=== PATIENT | female | born 1935 | race Caucasian/White ===

== ENCOUNTER 2016-09-20 07:36 | Inpatient (IN) | payer MEDICARE, MEDICAID ==
[~2016-09-20] VITALS: Ht 165.1 cm; Wt 39.4 kg
--- NOTE | ~2016-09-20 | DS ---
PATIENT'S NAME: NICHO DIAZ [facility] AGE: 81 Y [address] ROOM: [id number] [place], [place] [address] LOCATION: GPCU ADMIT DATE: 09/20/2016 Discharge Summary DISCHARGE DATE: 09/24/2016 FAMILY PHYSICIAN: Elio Bryson MD ATTENDING PHYSICIAN: Cristobal Anderson DISCHARGE DIAGNOSES: Pneumonia, endovascular leak, and status post fall. OPERATIONS AND PROCEDURES: None. HISTORY OF PRESENT ILLNESS: Please refer to H and P dictated by Dr. Brice. HOSPITAL COURSE: The patient was admitted to the Hospitalist Service after having a ground level fall at home. X-rays of her pelvis and left hip were negative for fractures. The patient was also noted to be in severe sepsis, secondary to bilateral lower lobe pneumonia. She received IV fluids in the emergency room and a dose of Zosyn. Blood cultures were taken. Her initial lactate was 2.4. Upon being admitted to the floor, her Zosyn was changed to Levaquin 750 q.48 dosing, the first dose of which she received on the . She improved clinically on Levaquin and her oxygen requirement came down from 6 L to 3 L at discharge. She chronically takes 4 L at home daily 04/09. Due to the patient's fall, she had continued difficulty with mobility, PT and OT were considered during her stay. At the time of discharge, she was able to walk on her own with a walker. Her pain was adequately controlled with Tylenol with Codeine and [place]. The [place] was discontinued for discharge and she was sent home on her home dosing of Tylenol with Codeine. The patient also noted to have endovascular leak on CT of her abdomen. The patient had known AAA with endovascular repair. Given her significant peripheral arterial disease, endovascular repair is not possible, and the only other option is open repair, which Vascular discussed with the patient, and she is not currently a candidate at this time; however, if she were to undergo open repair, she would need to be referred to [facility]. DISCHARGE INSTRUCTIONS: Diet as tolerated. Activity as tolerated. The patient is to take Levaquin for 3 more doses and her last dose she received in the hospital was on the 24 of September; so, she take another dose on the , , and to complete a 10 day course of Levaquin. DISCHARGE MEDICATIONS: 1. Flonase 1 spray in each nostril everyday. 2. Guaifenesin 1200 mg daily. 3. Plavix 75 mg daily. 4. Omeprazole 20 mg twice daily. 5. Prednisone 10 mg daily. 6. Trazodone 50 mg every night at bedtime. PATIENT'S NAME: NICHO DIAZ [facility] AGE: 81 Y [address] ROOM: [place] [address] [facility] ADMIT DATE: 09/20/2016 Discharge Summary DISCHARGE DATE: 09/24/2016 FAMILY PHYSICIAN: Elio Bryson MD ATTENDING PHYSICIAN: Cristobal Anderson 7. Advair 1 puff inhaled twice daily. 8. Spiriva 1 puff inhaled everyday. 9. Tylenol with Codeine 1 tab p.o. every 6 hours p.r.n. 10. Ipratropium albuterol 1 dose inhaled 4 times daily as needed. 11. Albuterol 1 puff inhaled every 4 hours p.r.n. 12. The patient was also given script for TLSO for her chronic back pain and a walker for her chronic gait instability. FOLLOW UP: The patient is to followup with her primary care doctor Dr. Bryson in 2 to 4 days. CONDITION: Fair. Total time spent was 45 minutes. BEBETO TORRES MD FOR MD YENI WASHINGTON/mau /[id number] d: 09/25/16 0215 t: 10/06/16 1140, DISCHARGE SUMMARY
--- NOTE | ~2016-09-20 | HP ---
PATIENT'S NAME: NICHO DIAZ [facility] AGE: 81 Y [address] ROOM: [place] [address] LOCATION: GPCU ADMIT DATE: 09/20/2016 History & Physical DISCHARGE DATE: FAMILY PHYSICIAN: JOYCE GARCIA MD ATTENDING PHYSICIAN: BERNY GA DATE OF SERVICE: CHIEF COMPLAINT: Sepsis secondary to bilateral lower lobe pneumonia, fall, unable to walk. HISTORY OF PRESENT ILLNESS: This is an 81-year-old female with a history of COPD on 4 L of oxygen at baseline, active smoker, history of AAA aneurysm status post repair, who presents from home after sustaining a fall yesterday. The patient presents to the emergency room for evaluation of her injuries from the fall, especially noting the fact that she was not able to walk since her fall. Initial evaluation with CT scan of her abdomen and pelvis did not show any fractures. The patient is still unable to bear weight and ambulate currently. The patient was also reporting increased cough and worsening sputum production over the past few days as well. In the ED, she had a temperature of 100.3. Denies any subjective fever or chills, however. The patient did have recurrent admissions in the past with pneumonia. The patient currently during my evaluation is resting comfortably in bed. She was not reporting any worsening of shortness of breath. Denies any chest pain, dizziness, lightheadedness, as well, although her appetite has been poor. Overall, she is in good spirits. Denies any abdominal pain, nausea, vomiting, diarrhea, constipation. PAST MEDICAL HISTORY: COPD, peptic ulcer disease, osteoporosis, scoliosis, aortic aneurysm status post endovascular repair. SOCIAL HISTORY: The patient is currently an active smoker and has had a long history of smoking. Denies any alcohol or drug use. FAMILY HISTORY: The patient has history of hypertension and heart disease in her parents. REVIEW OF SYSTEMS: All systems have been reviewed and were all negative except as described in the HPI. PHYSICAL EXAMINATION: PATIENT'S NAME: NICHO DIAZ [facility] AGE: 81 Y [address] ROOM: [place] [address] LOCATION: GPCU ADMIT DATE: 09/20/2016 History & Physical DISCHARGE DATE: FAMILY PHYSICIAN: JOYCE GARCIA MD ATTENDING PHYSICIAN: BERNY GA VITAL SIGNS: Blood pressure 106/57, temperature 100.2, pulse 119, respiratory rate 22, saturating 90% on 6 L of nasal cannula. GENERAL: The patient is awake, alert, and oriented x3, in no acute distress. HEENT: Dry mucosal membranes. No scleral icterus. Conjunctival pallor noted. SKIN: Age related ecchymosis noted on upper and lower extremities. CHEST: Diminished breath sounds with mild wheezing diffusely but no rhonchi or rales noted. HEART: S1, S2. Tachycardic but regular rate and rhythm. ABDOMEN: Soft, nontender, nondistended with positive bowel sounds. MUSCULOSKELETAL: Left hip pain with active and passive range of motion. NEUROLOGIC: Grossly nonfocal. EXTREMITIES: Without edema. LABORATORY DATA: Lactate 2.4, white count 76[address]. ASSESSMENT AND PLAN: 1. Severe sepsis secondary to bilateral lower lobe pneumonia. The patient received an equivalent of 30 mL per kg and IV fluid boluses. I will continue maintenance fluid on top of this. Blood cultures x2 have been ordered. Initial lactate 2.4, we will repeat lactic acid level in 3 hours and reassess. She had gotten a dose of Zosyn and I will change this to Levaquin and continue to evaluate clinically. 2. Fall with left hip injury. The patient is not able to bear weight on her leg. No signs of fracture on CAT scan done. We will have PT/OT evaluate patient and would likely need evaluation for placement as well since she came from home and it does not look like she would be able to go back home currently. 3. Status post abdominal aortic aneurysm repair. CT scan showing signs of leak. The patient is being seen by Vascular Surgery and Dr. Wolfe. 4. Acute on chronic respiratory failure with hypoxia at baseline of 4 L of oxygen at home. Now up to 6 L, saturating around 90%. We will treat pneumonia and continue to evaluate. 5. Severe protein calorie malnutrition. We will give some nutritional supplementation. 6. Chronic obstructive pulmonary disease, management with pneumonia as above. 7. Tobacco dependence. The patient is still an active smoker, and does not have an interest in thinking about quitting at this point. 8. Deep venous thrombosis prophylaxis. We will use subcutaneous heparin. PATIENT'S NAME: NICHO DIAZ [facility] AGE: 81 Y [address] ROOM: [id number] [place] [id number] LOCATION: [facility] ADMIT DATE: 09/20/2016 History & Physical DISCHARGE DATE: FAMILY PHYSICIAN: JOYCE GARCIA MD ATTENDING PHYSICIAN: BERNY GA MD BG/modl /[id number] D: [id number] T: [id number] HISTORY & PHYSICAL
--- NOTE | ~2016-09-20 | CON ---
PATIENT'S NAME: NICHO DIAZ [facility] AGE: 81 Y [address] ROOM: [address] [address] LOCATION: GPCU ADMIT DATE: 09/20/2016 Consultation DISCHARGE DATE: FAMILY PHYSICIAN: JOYCE GARCIA MD ATTENDING PHYSICIAN: BERNY GA DATE OF CONSULTATION: 09/20/2016 REASON FOR CONSULTATION: Abdominal aortic aneurysm, post EVAR, now with endoleak. HISTORY OF PRESENTING ILLNESS: This is an 81-year-old female, currently in the emergency room at [facility]. The patient reports that she fell yesterday at home after tripping on her way out of the bathroom. She now presents to the emergency room with pain in her lower abdomen, back, left buttock, and left groin. She reports that she is unable to walk due to pain. X-ray complete with no acute bone fracture identified of the left hip or pelvis. There are vascular calcifications on x-ray. She also complains of cough. The patient with significant history of COPD, chronic bronchitis, and emphysema. The patient is known to Vascular Surgery. She underwent endovascular abdominal aortic aneurysm repair in 2003 with stent graft in [place]. We last saw the patient in November 2015 in the clinic and at that time on CTA, there was no evidence of endoleak. She was also still smoking and expressed no interest in smoking cessation. She continues to smoke 6-7 cigarettes a day. The patient with a [place] Excluder graft. CT with contrast today reveals a new endoleak from previous scan to base of aortic aneurysm with increase in AAA size from previous 5.5 cm to now 6 cm. The patient also reports symptoms consistent with claudication with difficulty ambulating in a certain distance. She denies any shortness of breath or chest pain. She denies any dizziness or palpitations. Denies nausea, vomiting, or diarrhea. PAST MEDICAL HISTORY: 1. AAA, postop repair. 2. Osteoarthritis. 3. COPD. 4. Anxiety. 5. Tobacco abuse. 6. Peripheral vascular disease. PAST SURGICAL HISTORY: 1. Lumbar diskectomy. 2. Total hysterectomy. 3. Endovascular abdominal aortic aneurysm repair. 4. Cholecystectomy. PATIENT'S NAME: NICHO DIAZ [facility] AGE: 81 Y [address] ROOM: [place] [address] LOCATION: [facility] ADMIT DATE: 09/20/2016 Consultation DISCHARGE DATE: FAMILY PHYSICIAN: JOYCE GARCIA MD ATTENDING PHYSICIAN: BERNY GA 5. Tonsillectomy. FAMILY HISTORY: The patient reports that she was adopted and her family history is unknown. SOCIAL HISTORY: The patient is a 60-year smoker, continues to smoke 6-7 cigarettes a day. She denies any alcohol or illicit drug use. CURRENT MEDICATIONS: See medication reconciliation. ALLERGIES: NO KNOWN DRUG ALLERGIES. REVIEW OF SYSTEMS: All systems have been reviewed and negative aside from pertinent positives addressed in history of presenting illness. PHYSICAL EXAMINATION: VITAL SIGNS: Temperature is 100.2, heart rate 119, respiratory rate 22, blood pressure 106/57, and oxygen 90%. GENERAL: The patient is alert and oriented x3. She is in no distress while lying in bed. Gait is unobserved. The patient reports significant pain with standing. SKIN: Warm, pink, and dry. Areas of scattered ecchymosis to bilateral arms. No nonhealing wounds to the extremities. HEENT: Head: Normocephalic and atraumatic. Ears without drainage. Eyes: Sclerae white. Conjunctivae pink. Nose: Without drainage. Throat: Oral mucosa pink and moist. No exudate or erythema. NECK: Without adenopathy. No evidence of JVD. No carotid bruit. Trachea midline. RESPIRATORY: Even and unlabored. Diminished lung sounds. Crackles in the bases. CARDIOVASCULAR: Regular rate and rhythm. Tachycardic, no murmur or extra sounds. GASTROINTESTINAL: Bowel sounds active x4. Soft, no pulsatile mass. Nontender, no organomegaly. EXTREMITIES: Diminished femoral pulse on the right. Unable to palpate a femoral pulse on the left. DP and PT are nonpalpable. No edema, no cyanosis. NEUROLOGICAL: No focal deficits. DIAGNOSTICS: Hematology: White blood cell count 8.3, hemoglobin 9.7, hematocrit 30.1, platelets 205. Chemistry: Sodium 136, potassium 3.5, chloride 101, CO2 of PATIENT'S NAME: NICHO DIAZ [facility] AGE: 81 Y [address] ROOM: [address] [place] [id number] LOCATION: GPCU ADMIT DATE: 09/20/2016 Consultation DISCHARGE DATE: FAMILY PHYSICIAN: JOYCE GARCIA MD ATTENDING PHYSICIAN: BERNY GA 26, BUN 19, creatinine 0.8, glucose 145, lactate 2.4. Chest x-ray, impression: Emphysematous changes in the lung with scattered fibrotic strands present. Lung consolidation at the medial lower right hemithorax, at the left infrahilar area, and left base. Procalcitonin 0.41. IMPRESSION AND PLAN: Abdominal aortic aneurysm, postop repair with stent graft. Now found to have an endoleak. Currently, the patient is hemodynamically stable and abdominal pain started yesterday after her fall. 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 She has heavily calcified arteries throughout including her bilateral iliac arteries. Therefore we would be unable to repair her abdominal aortic aneurysm endoleak, endovascularly. The only option for the patient to repair endoleak would be to have an open repair. Dr. Wolfe did discuss CT findings with the patient and her family as well as the risks and benefits of an open repair. The patient is with multiple comorbidities and poor prognosis. At this time, the patient expresses no desire to have open repair. If the patient were to change her mind, we would recommend that the patient be referred to [facility] for surgical intervention. The patient is currently with pneumonia and is being admitted under the care of the hospitalist. Thank you for allowing us to participate in the care of this patient. If you have any questions or concerns, please call us. SHANNAN DYER APRN FOR TREMAINE WOLFE MD TO/michaell /[id number] d: 09/20/16 1849 t: 10/01/16 1627, CONSULTATION REPORT
--- NOTE | ~2016-09-20 | ER ---
[facility] 81 Y [address] ROOM: [place] [address] LOCATION: [facility] ADMIT DATE: 09/20/2016 ER/Outpatient Report DISCHARGE DATE: FAMILY PHYSICIAN: Elio Bryson MD ATTENDING PHYSICIAN: Tavo Ryder Time of Arrival: 0735 hours. Time of Evaluation: 0735 hours. CHIEF COMPLAINT: Fall, lower abdominal pain, cough. HISTORY OF PRESENT ILLNESS: The patient is an 81-year-old female who presents to the emergency department today with a chief complaint of fall, lower abdominal pain, and cough. The patient reports that she fell yesterday. She complains of abdominal pain, left hip pain, and left groin pain. She has mild headache. Denies any chest pain. No shortness of breath, but has had a productive cough and is coughing up brownish sputum. She denies any nausea or vomiting. She has a hard type pain in her lower abdomen. Denies any fevers or chills. Complains of pain in her left buttocks. It is sharp. It is currently 10/10 in severity. PAST MEDICAL HISTORY: Chronic bronchitis, COPD, and emphysema, she is on chronic O2 at 4 L nasal cannula; osteoporosis; and peptic ulcer disease. PAST SURGICAL HISTORY: AAA repair, endovascular stent, back surgery, and hysterectomy. SOCIAL HISTORY: The patient smokes 7 cigarettes a day. Denies any alcohol or illicit drug use. ALLERGIES: NO KNOWN DRUG ALLERGIES. MEDICATIONS: Please see list. REVIEW OF SYSTEMS: All systems are reviewed by myself and are negative with the exception of those discussed in the HPI and Past Medical History. PHYSICAL EXAMINATION: VITAL SIGNS: Weight 38.3 kg. Blood pressure 106/57, pulse 119, respiratory [facility] 81 Y [address] ROOM: [place] [address] LOCATION: [facility] ADMIT DATE: 09/20/2016 ER/Outpatient Report DISCHARGE DATE: FAMILY PHYSICIAN: Elio Bryson MD ATTENDING PHYSICIAN: Tavo Ryder rate 22, temperature 100.2, and oxygen saturation 90% on 4 L nasal cannula. GENERAL: The patient is an 81-year-old female who appears older than stated age. She is thin. Appears in no acute distress. HEENT: Head is normocephalic and atraumatic. Pupils are equal, round, and reactive to light. Extraocular motions are intact. Nares are patent bilaterally. TMs are clear. Oropharynx is clear. NECK: Supple. There is no midline tenderness to palpation. No step-offs or deformities. CARDIOVASCULAR: Tachycardic. No murmurs, rubs, or gallops. LUNGS: Clear to auscultation bilaterally. No wheezes, rales, or rhonchi. ABDOMEN: Soft, nontender, and nondistended. No rebound, rigidity, or guarding. MUSCULOSKELETAL: The patient moves all 4 extremities. She does have pain with range of motion of her left hip. SKIN: Warm and dry. LABORATORY AND X-RAY DATA: Lactate is 2.4. CBC: White blood cell count 18.3 and hemoglobin 9.7. Otherwise, normal. PTT is normal. INR is 1.1. CMP is unremarkable. LFTs are normal. Cardiac enzymes are normal. Free T4 is normal. TSH is normal. Urinalysis shows 150 blood, 10 to 20 rbc's, rare epithelials, and negative bacteria. Procalcitonin is 0.41. Chest x-ray shows blunting on the left. There is a CT scan of the abdomen and pelvis that was obtained. I discussed results with the radiologist, does show a consolidation in right base, much worse than the left. She has aortoiliac stent that does show an endoleak. Aneurysm has gone from 5.5 to 6 cm. There is no evidence of fractures noted. IMPRESSION: 1. Community-acquired pneumonia. 2. Severe sepsis due to number 1. 3. Acute on chronic hypoxic respiratory failure. 4. Endoleak of abdominal aortic aneurysm graft repair. 5. Initial visit. EMERGENCY DEPARTMENT COURSE: The patient was brought back to the examination room. Seen and evaluated by myself. IV was established. Laboratory analysis and imaging were obtained as described above. The patient is given 25 mcg of fentanyl IV. The patient does get blood cultures. Urinalysis was obtained. She was started on Levaquin and Zosyn. She recieved IV normal saline 1 liter bolus. I have discussed the results with Dr. Wolfe's PA, Leonarda. She has seen and evaluated the patient down here in the emergency department. She has discussed the case with Dr. Wolfe who is currently in surgery, does recommend n.p.o. I have contacted Dr. Anderson. He does agree to accept the patient for further evaluation, treatment, and management. DISPOSITION: PATIENT'S NAME: NICHO DIAZ [facility] AGE: 81 Y [address] ROOM: [place] [address] LOCATION: [facility] ADMIT DATE: 09/20/2016 ER/Outpatient Report DISCHARGE DATE: FAMILY PHYSICIAN: Elio Bryson MD ATTENDING PHYSICIAN: Tavo Ryder The patient is admitted under the care of Dr. Anderson in stable condition. DO DADA CALDERON/mau /[id number] d: 09/20/16 1321 t: 09/21/16 0806, OUTPATIENT REPORT
[2016-09-20 08:15] LABS: BASOPHIL % 0.2 %; EOSINOPHIL % 0.1 %; HEMATOCRIT 30.1 % (30.0-46.0); HEMOGLOBIN 9.7 g/dL (10.0-15.0); IMMATURE GRANULOCYTE # 0.2 K/uL (0.0-0.3); IMMATURE GRANULOCYTE % 1.3 %; LYMPHOCYTE # 1.4 K/uL (0.8-4.0); LYMPHOCYTE % 7.5 %; MCH 30.3 pg (27.0-34.0); MCHC 32.2 gm/dL (32.0-36.5); MCV 94.1 fl (83.0-98.0); MONOCYTE # 1.1 K/uL (0.0-1.0); MONOCYTE % 5.9 %; MPV 7.9 fl (9.4-12.4); NEUTROPHIL # (ANC) 15.6 K/uL (1.8-7.8); NRBC % 0 /100WBC (0-0.00); PLATELET COUNT 205 K/uL (150-450); RDW-CV 15.8 % (11.9-14.6); WBC 18.3 K/uL (4.0-11.0)
[2016-09-20 08:25] LABS: PROTIME 11.6 SECONDS (9.8-11.4); PTT 31 SECONDS (25-32)
[2016-09-20 08:42] LABS: ALBUMIN 2.5 gm/dL (3.5-5.0); ALK PHOS 79 IU/L (33-138); ALT 42 IU/L (12-78); ANION GAP 12.5 (10.0-19.0); AST 41 IU/L (10-40); BLOOD UREA NITROGEN 19 mg/dL (6-24); CALCIUM 8.3 mg/dL (8.5-10.5); CHLORIDE 101 mMol/L (96-110); CO2 26 mMol/L (22-32); CPK 36 IU/L (21-215); CREATININE 0.8 mg/dL (0.5-1.1); POTASSIUM 3.5 mMol/L (3.7-5.1); SODIUM 136 mMol/L (135-145); TOTAL BILIRUBIN 0.4 mg/dL (0.0-1.5); TOTAL PROTEIN 6.4 g/dL (6.0-8.4)
[2016-09-20 08:58] LABS: BILIRUBIN URINE NEGATIVE (NEGATIVE); BLOOD URINE 150 /UL (NEGATIVE); COLOR URINE YELLOW (YELLOW); GLUCOSE URINE NEGATIVE (NEGATIVE); KETONE URINE NEGATIVE (NEGATIVE); LEUKOCYTES URINE NEGATIVE /UL (NEGATIVE); NITRITE URINE NEGATIVE (NEGATIVE); PROTEIN URINE 30 mg/dL (NEGATIVE); TURBIDITY URINE CLEAR (CLEAR); UROBILINOGEN URINE NORMAL (NORMAL)
[2016-09-20 09:10] LABS: BACTERIA URINE NEGATIVE (NEGATIVE); EPITHELIAL URINE RARE #/HPF (NEGATIVE); WBC URINE RARE #/HPF (NEGATIVE)
[2016-09-20] MEDS ORDERED: ADVAIR 250-501 EACH INH (15:56)
[2016-09-20] MEDS ORDERED: PRILOSEC20 MG PO (15:57)
[2016-09-20] MEDS ORDERED: SPIRIVA HANDIHA1 KIT INH (15:57)
[2016-09-20] MEDS ORDERED: PLAVIX75 MG PO (15:58)
[2016-09-20] MEDS ORDERED: PREDNISONE10 MG PO (15:59)
[2016-09-20] MEDS ORDERED: MUCINEX1200 MG PO (15:59)
[2016-09-20] MEDS ORDERED: FLONASE ALLER15.8 ML NOSE (16:00)
[2016-09-20] MEDS ORDERED: TYLENOL WITH C1 EACH PO (16:01)
[2016-09-20] MEDS ORDERED: ADVAIR 500-501 EACH INH (16:14)
[2016-09-20] MEDS ORDERED: DESYREL50 MG PO (16:15)
[2016-09-20] MEDS ORDERED: DUONEB INH (16:19)
[2016-09-21 06:32] LABS: BASOPHIL % 0.2 %; EOSINOPHIL # 0.1 K/uL (0.0-0.5); EOSINOPHIL % 0.7 %; HEMATOCRIT 27.5 % (30.0-46.0); HEMOGLOBIN 8.6 g/dL (10.0-15.0); IMMATURE GRANULOCYTE # 0.1 K/uL (0.0-0.3); IMMATURE GRANULOCYTE % 0.8 %; MCH 29.9 pg (27.0-34.0); MCHC 31.3 gm/dL (32.0-36.5); MCV 95.5 fl (83.0-98.0); MONOCYTE # 0.6 K/uL (0.0-1.0); MONOCYTE % 5.6 %; MPV 8.3 fl (9.4-12.4); NEUTROPHIL # (ANC) 9.3 K/uL (1.8-7.8); NEUTROPHIL % 83.7 %; NRBC % 0 /100WBC (0-0.00); PLATELET COUNT 166 K/uL (150-450); RBC 2.88 M/uL (3.00-5.00); RDW-CV 15.6 % (11.9-14.6); WBC 11.1 K/uL (4.0-11.0)
[2016-09-21 06:46] LABS: ANION GAP 11.8 (10.0-19.0); CALCIUM 7.8 mg/dL (8.5-10.5); CREATININE 0.5 mg/dL (0.5-1.1); MAGNESIUM 1.7 mg/dL (1.8-2.6); PHOSPHORUS 2.3 mg/dL (2.5-4.9); POTASSIUM 3.8 mMol/L (3.7-5.1)
[2016-09-21] MEDS ORDERED: PROVENTIL OR V6.7 GM INH (10:25)
[2016-09-22 05:45] LABS: BASOPHIL % 0.2 %; EOSINOPHIL # 0.1 K/uL (0.0-0.5); EOSINOPHIL % 0.7 %; HEMATOCRIT 28.1 % (30.0-46.0); IMMATURE GRANULOCYTE # 0.1 K/uL (0.0-0.3); IMMATURE GRANULOCYTE % 1.1 %; LYMPHOCYTE # 1.2 K/uL (0.8-4.0); LYMPHOCYTE % 13.1 %; MCV 93.7 fl (83.0-98.0); MONOCYTE # 0.7 K/uL (0.0-1.0); MONOCYTE % 7.8 %; MPV 8.6 fl (9.4-12.4); NEUTROPHIL # (ANC) 6.8 K/uL (1.8-7.8); NEUTROPHIL % 77.1 %; NRBC % 0 /100WBC (0-0.00); PLATELET COUNT 172 K/uL (150-450); RDW-CV 15.4 % (11.9-14.6); WBC 8.8 K/uL (4.0-11.0)
[2016-09-22 06:02] LABS: ALBUMIN 2.1 gm/dL (3.5-5.0); ANION GAP 9.7 (10.0-19.0); CALCIUM 8.5 mg/dL (8.5-10.5); CREATININE 0.5 mg/dL (0.5-1.1); MAGNESIUM 1.8 mg/dL (1.8-2.6); PHOSPHORUS 3.2 mg/dL (2.5-4.9); POTASSIUM 3.7 mMol/L (3.7-5.1)
[2016-09-23 05:22] LABS: BASOPHIL % 0.2 %; EOSINOPHIL # 0.1 K/uL (0.0-0.5); EOSINOPHIL % 0.7 %; HEMATOCRIT 27.7 % (30.0-46.0); HEMOGLOBIN 8.9 g/dL (10.0-15.0); IMMATURE GRANULOCYTE # 0.1 K/uL (0.0-0.3); IMMATURE GRANULOCYTE % 1.5 %; LYMPHOCYTE # 1.5 K/uL (0.8-4.0); LYMPHOCYTE % 16.7 %; MCHC 32.1 gm/dL (32.0-36.5); MCV 93.3 fl (83.0-98.0); MONOCYTE # 0.7 K/uL (0.0-1.0); MONOCYTE % 7.8 %; MPV 8.3 fl (9.4-12.4); NEUTROPHIL # (ANC) 6.3 K/uL (1.8-7.8); NEUTROPHIL % 73.1 %; NRBC % 0 /100WBC (0-0.00); PLATELET COUNT 186 K/uL (150-450); RBC 2.97 M/uL (3.00-5.00); RDW-CV 15.2 % (11.9-14.6); WBC 8.7 K/uL (4.0-11.0)
[2016-09-23 05:44] LABS: ALBUMIN 2.2 gm/dL (3.5-5.0); ANION GAP 11.7 (10.0-19.0); CALCIUM 8.6 mg/dL (8.5-10.5); CREATININE 0.6 mg/dL (0.5-1.1); PHOSPHORUS 3.4 mg/dL (2.5-4.9); POTASSIUM 3.7 mMol/L (3.7-5.1)
[2016-09-24 03:49] LABS: BASOPHIL % 0.3 %; EOSINOPHIL % 0.4 %; HEMATOCRIT 28.9 % (30.0-46.0); HEMOGLOBIN 9.2 g/dL (10.0-15.0); IMMATURE GRANULOCYTE # 0.1 K/uL (0.0-0.3); IMMATURE GRANULOCYTE % 1.8 %; LYMPHOCYTE # 1.5 K/uL (0.8-4.0); LYMPHOCYTE % 20.2 %; MCH 29.9 pg (27.0-34.0); MCHC 31.8 gm/dL (32.0-36.5); MCV 93.8 fl (83.0-98.0); MONOCYTE # 0.7 K/uL (0.0-1.0); MONOCYTE % 9.1 %; MPV 8.3 fl (9.4-12.4); NEUTROPHIL % 68.2 %; NRBC % 0 /100WBC (0-0.00); PLATELET COUNT 195 K/uL (150-450); RBC 3.08 M/uL (3.00-5.00); RDW-CV 15.1 % (11.9-14.6); WBC 7.3 K/uL (4.0-11.0)
[2016-09-24 04:02] LABS: ALBUMIN 2.3 gm/dL (3.5-5.0); ANION GAP 10.7 (10.0-19.0); CALCIUM 8.4 mg/dL (8.5-10.5); CREATININE 0.6 mg/dL (0.5-1.1); POTASSIUM 3.7 mMol/L (3.7-5.1)
[2016-09-24] MEDS ORDERED: LEVAQUIN750 MG PO (12:53)
== END 2016-09-24 15:42 | disposition disaster alternative care site (69) | DRG 871 ==
LOC: GACC 07:36 → GPCU 12:55
PROVIDERS: Emergency Medicine; ADMIT Internal Medicine
DX: A41.9 Sepsis, unspecified organism (principal); J96.21 Acute and chronic respiratory failure with hypoxia; E43 Unspecified severe protein-calorie malnutrition; J18.9 Pneumonia, unspecified organism; J44.0 Chronic obstructive pulmonary disease with (acute) lower respiratory infection; I48.0 Paroxysmal atrial fibrillation; Z99.81 Dependence on supplemental oxygen; T82.330A Leakage of aortic (bifurcation) graft (replacement), initial encounter; Z68.1 Body mass index [BMI] 19.9 or less, adult; Z66 Do not resuscitate; I73.9 Peripheral vascular disease, unspecified; R65.20 Severe sepsis without septic shock; G89.11 Acute pain due to trauma; R26.9 Unspecified abnormalities of gait and mobility; G89.29 Other chronic pain; M54.9 Dorsalgia, unspecified; F17.210 Nicotine dependence, cigarettes, uncomplicated; M81.0 Age-related osteoporosis without current pathological fracture; Z87.11 Personal history of peptic ulcer disease; M19.90 Unspecified osteoarthritis, unspecified site; W01.0XXA Fall on same level from slipping, tripping and stumbling without subsequent striking against object, initial encounter; R00.0 Tachycardia, unspecified; I70.8 Atherosclerosis of other arteries; Z79.02 Long term (current) use of antithrombotics/antiplatelets; Z79.52 Long term (current) use of systemic steroids; R62.7 Adult failure to thrive
CPT/HCPCS: J1644; J1956; J2543; J3010; J7030; J7512; Q9967